=== PATIENT | male | born 1940 | race Caucasian/White ===

== ENCOUNTER 2017-01-29 14:15 | Inpatient (IN) | payer MEDICARE ==
[~2017-01-29] VITALS: Ht 157.5 cm; Wt 75.7 kg
[~2017-01-29 14:15] MED LIST: ACET-171 PO; AMLO2.5T PO; ASPI325T32 PO; HYDR-656 PO; MELO-253 PO; MORP-32 PO; NIAC500T21 PO; ONDA4TAB9 PO; OXYC1TAB24 PO; TAMS0.4C98 PO
[2017-01-29 14:30] VITALS: BP 179/77; PULSE 97; RESP 18; O2SAT 96
[2017-01-29] MEDS ORDERED: Ondansetron 2 mg/mL 2 mL Inj IVPUSH ONE (16:35)
[2017-01-29] MEDS ORDERED: HYDROmorphone 0.5 mg/0.5 mL iSecure Syringe IVPUSH PRN (16:35)
--- NOTE | 2017-01-29 16:44 | ED.REPORT ---
HPI-Extremity Problem Lower Date of Service Jan 29, 2017 ED Provider: Octavio Presley PA-C Sebastian is a 76-year-old male with history of extensive eczema, DM 2, NV, CVA, COPD who presents to emergency department with a chief complaint of left lower leg pain. Patient reports worsening pain, redness and swelling in his left lower extremity last month. States that today he noticed it was weeping a lot. Complains of chills and has difficulty moving his toes. Patient reports some left-sided paralysis at baseline and walks with a cane. Denies chest pain, palpitations, shortness of breath, wheezing, abdominal pain, vomiting. Nursing Notes Stated Complaint: LEG PROBLEM Chief Complaint: Extremity Trauma Nursing Notes Reviewed: Yes Allergies: Coded Allergies: lidocaine (Verified Allergy, Unknown, 01/29/17) Scheduled Acetaminophen (Acetaminophen) 500 Mg Tablet 1,500 MG PO HS Amlodipine (Amlodipine) 2.5 Mg Tablet 2.5 MG PO HS Aspirin (Aspirin) 81 Mg Tablet 81 MG PO HS Melatonin (Melatonin) 5 Mg Tablet 5 MG PO HS Omeprazole (Omeprazole) 20 Mg Capsule.dr 20 MG PO HS diphenhydrAMINE HCl (Benadryl) 25 Mg Capsule 25 MG PO HS Scheduled PRN ([Maria Lwood]) 1 APPLIC TOPICAL DIRECTED PRN PRN RASH Albuterol HFA (Proair HFA) 8.5 Gm Hfa.aer.ad 2 PUFFS INHALATION Q4H PRN PRN For Shortness of Breath Docusate Sodium (Docusate Sodium) 250 Mg Capsule 250 MG PO BID PRN PRN For Constipation Polyethylene Glycol 3350 (Miralax) 17 Gm Powd.pack 17 GM PO DAILY PRN PRN For Constipation Sennosides (Senna) 8.6 Mg Tablet 17.2 MG PO BID PRN PRN For Constipation General Time Seen by MD: 16:15 Chief Complaint Leg injury left Past Medical History Past Medical History Notes: PCP: ME Past Medical History Coronary artery disease with history of myocardial infarction s/p stent in 1998. Dyslipidemia. Diet-controlled diabetes mellitus type 2. History of Prostate cancer, monitored by Dr. Joyner. Severe pustular psoriasis. COPD. History of right hemisphere CVA with dysphagia, and right hemiparesis. Congestive heart failure, chronic systolic and diastolic dysfunction. Echocardiogram in 2009 showed an LVEF of 40-45%. Hypertension. History of peptic ulcer disease s/p pre-pyloric gastric perforation with surgical repair. Severe degenerative cervical arthritis. History of dysphagia and aspiration pneumonia. CKD stage 3. Eczema Reports: Asthma, Congestive heart failure, Coronary artery disease, GERD Past Surgical History Incarcerated Hernia Repair -2015 Grehard Miranda EGD 08/2015 by Gerhard Miranda - Submucosal greater curvature duodenal mass. Inguinal Hernia Stent placement 1998 Cataracts Family History non-contributory Smoking History Former Smoker Social History Alcohol Use: Denies alcohol use Other Social History: Good social support, , Local resident Ambulatory Status Independent Review of Systems Review of Systems Note: Negative unless stated otherwise in history of present illness Physical Exam General: Well appearing, well developed, well nourished, no acute distress. Left leg: Extensive redness, tenderness, induration on the medial aspect of the lower leg. DP pulse 2+. Moderate swelling when compared to right leg. Head: Atraumatic, normocephalic. Eyes: No scleral icterus or injection. No discharge. Vision grossly intact. ENT: Voice clear, hearing grossly intact. Respiratory: Regular rate and rhythm. Breath sounds present, clear to auscultation and equal bilaterally. No respiratory distress. No increased work of breathing, speaks in complete sentences. Cardiovascular: Regular rate and rhythm, without murmur, gallop or rub. No pedal edema. Gastrointestinal: Abdomen flat and non-tender without guarding or rebound. Bowel sounds normoactive. Skin: Warm and dry. Neurological: Grossly nonfocal. Psychological: Alert and oriented. Speech appropriate, linear and logical. Behavior appropriate. Initial Vital Signs Vital Signs (First) Date Time Temp Pulse Resp B/P Pulse Ox O2 Delivery O2 Flow Rate FiO2 01/29/17 14:30 37.1 97 18 179/77 96 Room Air Elevated blood pressure Interpretation & Diagnostics Lab Results Interpretation Result Diagram: 01/29/17 1659 01/29/17 1659 Test 01/29/17 16:59 White Blood Count 8.9th/mm3 (3.8-10.1) Red Blood Count 5.24mil/mm3 (4.40-5.80) Hemoglobin 10.6g/dL (13.8-17.2) Hematocrit 38.0% (41.0-50.0) Mean Corpuscular Volume 72.5fL (81-100) Mean Corpuscular Hemoglobin 20.2pg (27.0-35.0) Mean Corpuscular Hemoglobin Concent 27.9% (32.0-37.0) Red Cell Distribution Width 17.6% (12.3-15.4) Platelet Count 261bil/L (150-400) Neutrophils (%) (Auto) 72.9% (40-74) Lymphocytes (%) (Auto) 11.9% (14-46) Monocytes (%) (Auto) 7.2% (4-12) Eosinophils (%) (Auto) 7.4% (0-5) Basophils (%) (Auto) 0.4% (0-3) Prothrombin Time 10.2sec (8.1-12.5) Prothromb Time International Ratio 0.95ratio Sodium Level 142mEq/L (134-144) Potassium Level 4.2mEq/L (3.5-5.2) Chloride Level 104mEq/L (97-108) Carbon Dioxide Level 25mmol/L (18-29) Blood Urea Nitrogen 22mg/dL (8-27) Creatinine 1.28mg/dL (0.76-1.27) Estimat Glomerular Filtration Rate 58mL/min (>59) Glucose Level 106mg/dL (60-99) Lactic Acid Level 1.1mmol/L (0.4-2.0) Calcium Level 8.9mg/dL (8.5-10.1) Magnesium Level 1.6mg/dL (1.6-2.6) Total Bilirubin 0.3mg/dL (0.0-1.2) Aspartate Amino Transf (AST/SGOT) 13U/L (0-50) Alanine Aminotransferase (ALT/SGPT) 7U/L (0-44) Alkaline Phosphatase 90U/L (25-160) Troponin T < 0.010ug/L (0.0-0.011) Total Protein 7.2g/dL (6.4-8.4) Albumin 4.0g/dL (3.4-5.0) Lipase 38U/L (13-60) US Soft Tissue/Musculoskeletal PROCEDURE: US VEINOUS LEG DUPLEX UNILATERAL, LEFT IMPRESSION: No evidence of deep vein thrombosis involving the left lower extremity. Exam Performed by: Radiologist Re-Eval/Medical Decision Med Decision/Clinical Course 76-year-old male with a history of eczema and multiple comorbidities presents emergency department with a one-month history of redness, swelling and pain in his left leg. Physical examination reveals redness swelling, induration and tenderness in the left lower extremity as well as extensive eczema. Otherwise benign, normal vitals. Ultrasound is negative for DVT. CBC is negative for leukocytosis. I discussed the case with Dr. Yen, who met with and examined the patient. We agree the patient would benefit from admission. IV antibiotics (vancomycin and Zosyn) are initiated and admission is requested. Hospitalist accepts admission and patient is transferred to floor in stable condition. Consultation : Referral / Consult Name: Jenny Everett DO Note: Discussed case with Dr. Lloyd, hospitalist resident, excepts admission. Discharge & Departure Impression: Primary Impression: Cellulitis Site of cellulitis: extremity Site of cellulitis of extremity: lower extremity Laterality: left Qualified Code: L03.116 - Cellulitis of left lower limb Disposition: ADMITTED TO HOSPITAL Referrals: [facility] (PCP) EDSupervising Provider for APC: Romain Yen MD Attending Statement This is a patient initially seen by the mid-level provider, but I personally interviewed and examined the patient. This gentleman with diabetes, CHF, and mulitple co-morbidities who presents with increasing redness, swelling and pain weeping in the left lower extremity. He has intact pulses, duplex is negative for DVT, clinical exam is concerning for cellulitis. The patient is reporting significant chills and sweats-but does not clinically appear toxic. He is afebrile apartment, does not have leukocytosis. The plan is admission for IV antibiotics and supportive therapy. Octavio Presley PA-C Jan 29, 2017 16:44 Romain Yen MD Jan 29, 2017 17:46
[2017-01-29 17:10] LABS: BASOPHILS % (AUTO) 0.4 % (0-3); EOSINOPHILS % (AUTO) 7.4 % (0-5); MONOCYTES % (AUTO) 7.2 % (4-12); Mean Corpuscular Hemoglobin 20.2 pg (27.0-35.0); Mean Corpuscular Volume 72.5 fL (81-100); NEUTROPHILS % (AUTO) 72.9 % (40-74); Platelet Count 261 bil/L (150-400)
[2017-01-29 17:18] LABS: INR 0.95 ratio
[2017-01-29 17:31] LABS: TROPONIN T < 0.010 ug/L (0.0-0.011)
[2017-01-29 17:36] LABS: Lipase 38 U/L (13-60); Magnesium 1.6 mg/dL (1.6-2.6)
--- NOTE | 2017-01-29 17:36 | DRSVH ---
PROCEDURE: US VEINOUS LEG DUPLEX UNILATERAL, LEFT INDICATIONS: Leg pain. Shortness of breath. TECHNIQUE: Real-time imaging, as well as color and pulse Doppler interrogation, were performed of the lower extr emity deep veins from the inguinal ligament to the popliteal fossa. COMPARISON: None. FINDINGS: The deep veins are normally compressible, and free of intraluminal thrombus. Color and pu lse Doppler demonstrate normal phasic intraluminal flow. There is normal augmentation response to di stal compression maneuver. IMPRESSION: No evidence of deep vein thrombosis involving the left lower extremity. Dictated by: Shannan Carlson MD, PhD on 01/29/2017 at 16:33 Approved by: Shannan Carlson MD, PhD on 01/29/2017 at 16:34
[2017-01-29] MEDS ORDERED: Vancomycin Dose per Pharmacist XX ONE (17:50)
[2017-01-29] MEDS ORDERED: Piperacillin-Tazo 3.375 Gm Inj 3.375 GM in Dextrose 5% Minibag Plus 50 ML IV ONE (17:50)
[2017-01-29] MEDS ORDERED: Vancomycin Inj 1,500 MG in 0.9% Sodium Chloride 500 ML IV ONE (17:55)
[2017-01-29 19:00] VITALS: BP 164/72; PULSE 97; RESP 18; O2SAT 96
[2017-01-29] MEDS ORDERED: ASPI-973 PO (19:22)
[2017-01-29] MEDS ORDERED: POLY17PO6 PO (19:22)
[2017-01-29] MEDS ORDERED: DOCU250C2 PO (19:22)
[2017-01-29] MEDS ORDERED: SENN-133 PO (19:22)
[2017-01-29] MEDS ORDERED: ALBU8.5H2 INHALATION (19:22)
[2017-01-29] MEDS ORDERED: MELA5TAB14 PO (19:22)
[2017-01-29] MEDS ORDERED: DIPH25CA6 PO (19:22)
[2017-01-29] MEDS ORDERED: OMEP20CA11 PO (19:22)
[2017-01-29] MEDS ORDERED: Ondansetron 2 mg/mL 2 mL Inj IVPUSH PRN ×2 (19:50→20:00)
[2017-01-29] MEDS ORDERED: Alum-Mag Hydrox-Simeth 30 mL Suspension PO PRN ×2 (19:50→20:00)
[2017-01-29] MEDS ORDERED: Polyethylene Glycol (PEG) 17 Gm Powder PO PRN (20:00)
[2017-01-29 20:07] VITALS: BP 152/64; PULSE 88; RESP 18; O2SAT 96
[2017-01-29] MEDS ORDERED: diphenhydrAMINE 50 mg Capsule PO PRN (20:10)
[2017-01-29] MEDS ORDERED: [UNRECOGNIZED DRUG - OTHER] TOPICAL (20:10)
[2017-01-29 20:23] VITALS: BP 160/85; PULSE 117; RESP 18; O2SAT 92
[2017-01-29 20:25] VITALS: PULSE 112
--- NOTE | 2017-01-29 20:34 | PCM.HPMED ---
Subjective Date of Service Jan 29, 2017 Primary Provider: Admitting Physician: Jenny Everett DO [facility] Attending Physician: Jenny Everett DO Chief Complaint: Lower Leg Redness and Swelling History of Present Illness: Patient is a 76 y/o male with past medical history of DMT2, OK with stent, ischemic CVA with left residual, COPD, and eczema presents with lower extremity redness and swelling that began one month ago in his LLE and had spread to his RLE in the last week. Patient states that his eczema has been worse the past couple months, and he has had severe itchiness to his lower extremities and constantly scratches his legs. He began noticing the redness and swelling on the anterior aspect of his L ankle. This redness began to spread to the posterior ankle as well as up his leg. Along with the swelling, the patient states that his left leg has been draining fluid through the skin. His right leg has also been having extreme itchiness with redness and swelling starting this week, but denies any drainage. Patient notes point pain on the lateral ankle. Patient experiences claudication symptoms on days where he is more active and at night. Patient ambulates normally with a cane due to his left residual weakness. Associated sxs include, pain with active and passive flexion of his left foot, and a burning sensation along the anterior aspect of his Left ankle. Patient has been having chills the past two days. Denies any fevers, CP, increased SOB from baseline, ABD pain, N/V/D, dysuria, or urinary frequency. In the ED, patient was afebrile with RR, BP 179/77, O2 96% RA. Patient was started on Vancomycin and Zosyn due to the cellulitic appearance and chills. Review of Systems: Negative unless otherwise noted above Allergies Coded Allergies: lidocaine (Verified Allergy, Unknown, 01/29/17) Home Medications Acetaminophen (Acetaminophen) 500 Mg Tablet 1,500 MG PO HS Amlodipine (Amlodipine) 2.5 Mg Tablet 2.5 MG PO HS Aspirin (Aspirin) 81 Mg Tablet 81 MG PO HS Melatonin (Melatonin) 5 Mg Tablet 5 MG PO HS Omeprazole (Omeprazole) 20 Mg Capsule.dr 20 MG PO HS diphenhydrAMINE HCl (Benadryl) 25 Mg Capsule 25 MG PO HS Scheduled PRN Albuterol HFA (Proair HFA) 8.5 Gm Hfa.aer.ad 2 PUFFS INHALATION Q4H PRN PRN For Shortness of Breath Docusate Sodium (Docusate Sodium) 250 Mg Capsule 250 MG PO BID PRN PRN For Constipation Polyethylene Glycol 3350 (Miralax) 17 Gm Powd.pack 17 GM PO DAILY PRN PRN For Constipation Sennosides (Senna) 8.6 Mg Tablet 17.2 MG PO BID PRN PRN For Constipation PMH Coronary artery disease with history of myocardial infarction s/p stent in 1998. Dyslipidemia. Diet-controlled diabetes mellitus type 2. Prostate cancer, monitored by Dr. Joyner. Severe pustular psoriasis. COPD. Right hemisphere ischemic CVA with dysphagia, and left hemiparesis. Congestive heart failure, chronic systolic and diastolic dysfunction. 2009 LVEF 40-45% Hypertension. peptic ulcer disease s/p pre-pyloric gastric perforation with surgical repair. Severe degenerative cervical arthritis. dysphagia and aspiration pneumonia. CKD stage 3. Eczema Surgical History Incarcerated Hernia Repair Gerhard Miranda EGD 08/2015 by Gerhard Miranda - Submucosal greater curvature duodenal mass. Inguinal Hernia Stent placement 1998 Cataracts Family History Kidney Cancer in Brother Social History Hx Alcohol Use: No Hx Substance Use: No Hx Tobacco Use: No Smoking Status: Former Smoker Living Arrangement: with Family Exam Vital Signs Vital Sign - Last Date Time Temp Pulse Resp B/P Pulse Ox O2 Delivery O2 Flow Rate FiO2 01/29/17 20:07 37.0 88 18 152/64 96 Room Air Exam Constitutional: Awake, alert and oriented x3, no acute distress Head: normocephalic and atraumatic Eyes: Pupils equal round and reactive to light. pink conjunctiva Mouth: Poor dentition, no posterior oropharynx erythema Heart: regular rate and rhythm. No murmurs, rubs, or gallops. Bilateral pallor to distal feet and >2 capillary refill to distal digits on left foot. Distal feet are cool to the touch. Lungs: clear to auscultation, no wheeze, rales, or rhonchi ABD: Protuberant, diffuse mild tenderness, bowel sounds present throughout Musculoskeletal: Baseline LUE tremor, but FROM in bilateral UE. 5/5 strength in bilateral hand tack cutter; FROM in bilateral lower extremities Skin: Diffuse excoriatic lesions on bilateral UE including the posterior cubital areas; Blanching erythema on left lower extremity from midfoot to midcalf that is patchy and nonconfluent in some areas. Diffuse punctate excoriations on bilateral lower extremities from ankles up towards thighs. Lateral point tenderness to lateral malleolus on LLE. Pain with active flexion of Left foot. Neuro: CN II-XII intact. no focal deficits. Slight weakness to left UE with baseline tremor. Psych: appropriate mood and affect. Lab and Diagnostics Labs Item Value Date Time Red Blood Count 5.24 mil/mm3 01/29/171658 Hematocrit 38.0 % L 01/29/171658 Mean Corpuscular Volume 72.5 fL L 01/29/171658 Mean Corpuscular Hemoglobin 20.2 pg L 01/29/171658 Mean Corpuscular Hemoglobin Concent 27.9 % L 01/29/171658 Red Cell Distribution Width 17.6 % H 01/29/171658 Neutrophils (%) (Auto) 72.9 % 01/29/171658 Lymphocytes (%) (Auto) 11.9 % L 01/29/171658 Monocytes (%) (Auto) 7.2 % 01/29/171658 Eosinophils (%) (Auto) 7.4 % H 01/29/171658 Basophils (%) (Auto) 0.4 % 01/29/171658 Estimat Glomerular Filtration Rate 58 mL/min 01/29/171658 Lactic Acid Level 1.1 mmol/L 01/29/171658 Calcium Level 8.9 mg/dL 01/29/171658 Magnesium Level 1.6 mg/dL 01/29/171658 Total Bilirubin 0.3 mg/dL 01/29/171658 Aspartate Amino Transf (AST/SGOT) 13 U/L 01/29/171658 Alanine Aminotransferase (ALT/SGPT) 7 U/L 01/29/171658 Alkaline Phosphatase 90 U/L 01/29/171658 Troponin T < 0.010 ug/L 01/29/171658 Total Protein 7.2 g/dL 01/29/171658 Albumin 4.0 g/dL 01/29/171658 Lipase 38 U/L 01/29/171658 Prothrombin Time 10.2 sec 01/29/171658 Prothromb Time International Ratio 0.95 ratio 01/29/17 165 Result Diagram: 01/29/17 16501/29/17 165 X-Rays, CTs and MRIs PROCEDURE: US VEINOUS LEG DUPLEX UNILATERAL, LEFT IMPRESSION: No evidence of deep vein thrombosis involving the left lower extremity. Dictated by: Shannan Carlson MD, PhD on 01/29/2017 at 16:33 12-lead ECG Sinus rhythm; RBBB Assessment & Plan Patient is a 76 y/o male with past medical history of DMT2, OK with stent, ischemic CVA with left residual, COPD, and eczema presents with lower extremity redness and swelling that began one month ago in his LLE and had spread to his RLE in the last week - Acute Lower Extremity Erythema and Swelling, Present on Admission, Active, Stable (Infectious vs. Diminished Arterial Supply) - Patient has history of eczema with pruritic rash on bilateral LE that is actively weeping. DVT studies negative. Cellulitis appearance and active chills suggestive of infectious, possibly osteomyelitis. Distal Pallor and cool temperature suggestive of arterial insufficiency - U/S artery study of LLE in AM - Order, ESR, CRP, and Blood Cultures x2 - Plain XR of LLE ankle, will follow up with MRI if labs and radiology suggests osteomyelitis - Patient receiving Vancomycin and Zosyn - Benadryl 50mg HS for pruritus - Chronic Hypertension, Present on Admission, Active - Patient takes Amlodipine 2.5mg PO HS, continue - Add Labetalol PO PRN if BP remains elevated - Chronic GERD with PUD, Stable - Continue Omeprazole home dose - History of COPD, Stable - Continue home dose of Albuterol HFA - History of DMT2, diet controlled, Stable - Place pt on insulin ssi - History of CHF with reduced EF (40-45%), Stable - Patient not in any sort of CHF exacerbation - Tolerating PO intake, will hold off on IVF unless needed. - History of CKD stage III, Stable - Cr baseline 1.1, 1.25 on admission - Monitor Patient is admitted under inpatient status expected length of stay greater than 2 midnights due to severity of presenting symptoms, risk of adverse events, and complexity of treatment plan. Patient is Full Code Pain Evaluation: Adequate Pain Control GI Prophylaxis: H2 damaris VTE Prophylaxis: Other (on heparin drip) Resuscitation Status: CPR: Attempt Resuscitation Pain Evaluation: Adequate Pain Control GI Prophylaxis: Proton Pump Inhibitor VTE Prophylaxis Indicated: Meets Criteria for Anticoag Therapy VTE Prophylaxis: Sub-Q Heparin (Unfractionated) Resuscitation Status: CPR: Attempt Resuscitation Attending Statement The patient was seen and examined together with house staff on 01/29/2017 and I agree with the history, exam and plan as outlined in the note above. Dwight Lloyd DO Jan 29, 2017 20:34 Jenny Everett DO Jan 29, 2017 23:32
[2017-01-29] MEDS ORDERED: MORPHINE 2 MG/ML PO ONE (21:45)
[2017-01-29] MEDS: diphenhydrAMINE 25 mg Capsule PO PRN (21:50)
[2017-01-29] MEDS: Acetaminophen 32.5 mg/mL 20 mL Liquid PO SCH (21:52)
[2017-01-29] MEDS ORDERED: Morphine 2 mg/mL 5 mL Oral Solution PO ONE (22:00)
[2017-01-30] VITALS: BP 145/74; PULSE 106; RESP 18; O2SAT 93
[2017-01-30] MEDS: Heparin 5,000 Unit/mL Inj SUBQ SCH ×3 (01:31→18:15)
--- NOTE | 2017-01-30 02:27 | NUR ---
Admit Pt arrived on the floor with left lower extremity swelling/redness edema and is weeping fluids. Telemetry monitoring noted SR-ST with activity. Care plan explained to the patient. Patient verbalizes understanding. Intentional hourly rounding in effect.
[2017-01-30 04:47] VITALS: BP 127/64; PULSE 83; RESP 18; O2SAT 96
[2017-01-30 06:19] LABS: BASOPHILS % (AUTO) 0.4 % (0-3); EOSINOPHILS % (AUTO) 8.3 % (0-5); MONOCYTES % (AUTO) 9.6 % (4-12); Mean Corpuscular Hemoglobin 20.4 pg (27.0-35.0); Mean Corpuscular Volume 73.3 fL (81-100); NEUTROPHILS % (AUTO) 64.7 % (40-74); Platelet Count 219 bil/L (150-400)
[2017-01-30] MEDS ORDERED: Albuterol 2.5 mg/3 mL Inhalation Solution NEB PRN (07:00)
[2017-01-30 09:19] VITALS: BP 139/70; PULSE 91; RESP 18; O2SAT 93
--- NOTE | 2017-01-30 09:20 | NUR ---
Social Work-initial assessment: Data:See initial assessment. Pt is a 76 y/o male who was admitted on 01/29/17 for cellulitis per H&P. Pt's insurance is [facility] [employer] and PCP is [facility]. EMR Reviewed. AAYUSH met with pt at beside, SW role explained. Pt is alert and oriented x3. Pt resides at home with his in [facility] where he remains independent with ADLS. Pt drives and uses a cane at baseline. Pt has no HH, but has SNF history in [place] and has been to [facility] inpt rehab. Pt has no continuous churn buttermaker care insurance or VA benefits. SW discussed DPOA/ advanced directive, pt confirms he has completed this, SW encouraged a copy to be brought in. No concerns noted around pt's capacity for self care from RN or MD. Pt confirms his granddaughter will provide transport home. SW provided pt with discharge planning checklist and encouraged him to call with any questions, phone number provided on white board in room. No anticipated discharge needs. SW will continue to follow if needs arise. Assessment:Pt who is independent at baseline. Plan:Pt to discharge home when medically stable via POV. No anticipated discharge needs. SW will continue to follow if needs arise. ANNY Meraz Addendum: 01/30/17 at 0925 by SINGH WOODS SS Amended: Links added.
[2017-01-30] MEDS: Acetaminophen 32.5 mg/mL 20 mL Liquid PO PRN ×3 (09:27→21:30)
[2017-01-30] MEDS: 0.9% Sodium Chloride 1,000 ML IV SCH (09:31)
--- NOTE | 2017-01-30 09:53 | DRSVH ---
PROCEDURE: US DUPLEX DOPPLER UNILATERAL LEG ARTERIES, LEFT INDICATIONS: Swelling, distal pallor and cool temperature in LL TECHNIQUE: Color and pulse Doppler interrogation was performed of the left lower extremity arterial system, with image documentation. COMPARISON: [facility], US, US VENOUS LEG DPLX UNI LT, 01/29/2017, 16:56. FINDINGS: Vascular Ultrasound Procedure Report Findings(Artery of Lower Extremity)(Left) Common Femoral Artery(Distal) Velocity: 141 cm/s Profunda Femoris Artery(Proximal) Velocity: 169.30 cm/s Superficial Femoral Artery(Proximal) Velocity: 146.20 cm/s Superficial Femoral Artery(Mid-longitudinal) Velocity: 124.10 cm/s Superficial Femoral Artery(Distal) Velocity: 171.40 cm/s Popliteal Artery(Mid-longitudinal) Velocity: 199.80 cm/s Posterior Tibial Artery(Distal) Velocity: 123 cm/s Dorsalis Pedis Artery(Distal) Velocity: 147.10 cm/s Greyscale findings: Atherosclerotic changes are seen. Monophasic waveforms are seen throughout. IMPRESSION: Monophasic waveforms are seen throughout, without a focal arterial stenosis identified. Dictated by: Reynaldo Stanley M.D. on 01/30/2017 at 9:49 Approved by: Reynaldo Stanley M.D. on 01/30/2017 at 9:51
--- NOTE | 2017-01-30 10:21 | DRSVH ---
PROCEDURE: X-RAY LEFT ANKLE, TWO VIEWS ([id number]) INDICATIONS: Possible osteomyelitis TECHNIQUE: 2 views of the ankle were acquired. COMPARISON: None. FINDINGS: Bones: Minimal bone irregularity can be seen involving the inferior aspect of the medial malleolus. No fractures or dislocations. Ankle mortise is normally aligned. Age-appropriate bony degenerative changes are seen. Soft tissues: Soft tissue swelling is seen laterally. Calcification is noted of the distal arteries. This degree of calcification is typically seen in patients with a long-standing history of diabetes. Please correlate with a history of such. IMPRESSION: Minimal bony irregularity can be seen involving the inferior medial malleolus. In this p atient with a given history, this may be related to osteomyelitis at this site. Please correlate wit h physical examination findings. If it would be helpful for clinical management decision making, please consider a dedicated ankle MRI (without and with IV contrast) for further evaluation (assuming that there is no contraindication). Dictated by: Reynaldo Stanley M.D. on 01/30/2017 at 10:17 Approved by: Reynaldo Stanley M.D. on 01/30/2017 at 10:19
[2017-01-30] MEDS ORDERED: cefTRIAXone Inj 2,000 MG in Dextrose 5% Minibag Plus 50 ML IV SCH (11:55)
[2017-01-30] MEDS: TerBINafine 1% 15 Gm Cream TOPICAL SCH ×2 (11:57→20:30)
--- NOTE | 2017-01-30 12:29 | PCM.PNMED ---
Subjective Date of Service Jan 30, 2017 Subjective Patient is seen and examined. He states that he also has a rash and scratching quite a bit on his knees, abdomen, and back. He denies history of psoriasis, he is does not know if he has shingles. He does endorse occasional painful sensation and burning and he scratches. He was not treated for cellulitis in the past. He has a [id number] cream that he has been using that is not a steroid. No other concerns Exam Vital Signs Vital Sign - Last Date Time Temp Pulse Resp B/P Pulse Ox O2 Delivery O2 Flow Rate FiO2 01/30/17 04:47 36.5 83 18 127/64 96 Room Air Intake and Output 01/29/17 01/29/17 01/30/17 Cumulative From/Thru 14:59 22:59 06:59 01/29/17 14:30 - 01/30/17 04:50 Intake Total 550 ml 150 ml 700 ml Output Total 400 ml 400 ml Balance 550 ml -250 ml 300 ml Intake Oral 150 ml 150 ml IV Total 550 ml 550 ml Output Urine Total 400 ml 400 ml # Bowel Movements 0 0 Exam Gen.: No acute distress, moving about in the room HEENT: Missing front teeth Heart: Regular rate and rhythm no S3-S4 murmurs Lungs clear to auscultation no increased work of breathing Abdomen soft nontender normal bowel sounds mild rash in the lower left quadrant Skin: Small areas of excoriations from scratching on lower left abdomen and upper back extensive excoriations on both legs. Left leg is more swollen than the right leg. Motor erythema erythematous with weeping ulcers. He has a area of the anterior tibia that has a central clearing. Neurological alert and oriented by 3, mood is neutral IVs and Medications Medications Reviewed: Medications were reviewed in detail Lab and Diagnostics Result Diagram: 01/30/17 0540 01/30/17 0540 X-Rays, CTs and MRIs PROCEDURE: US VEINOUS LEG DUPLEX UNILATERAL, LEFT IMPRESSION: No evidence of deep vein thrombosis involving the left lower extremity. Dictated by: Shannan Carlson MD, PhD on 01/29/2017 at 16:33 12-lead ECG Sinus rhythm; RBBB Assessment & Plan Patient is a 76 y/o male with past medical history of DMT2, FL with stent, ischemic CVA with left residual, COPD, and eczema presents with lower extremity redness and swelling that began one month ago in his LLE and had spread to his RLE in the last week - Acute Lower Extremity Erythema and Swelling, Present on Admission, Active, Stable (Infectious vs. Diminished Arterial Supply) - Patient has history of eczema with pruritic rash on bilateral LE that is actively weeping. DVT studies negative. Cellulitis appearance and active chills suggestive of infectious, possibly osteomyelitis. Distal Pallor and cool temperature suggestive of arterial insufficiency - U/S artery study of LLE in AM was neg - Order, ESR 6, CRP 2.7, and Blood Cultures x2 - Plain XR of LLE ankle: "Minimal bony irregularity can be seen involving the inferior medial malleolus. In this patient with a given history, this may be related to osteomyelitis at this site. Please correlate with physical examination findings.", Ordered MRI of LLE ankle - Discontinued Vancomycin and Zosyn 01/30, the patient has a cellulitic rash on the left lower extremity appears to be more indicative of dermatitis - Benadryl 50mg HS for pruritus -- Community dwelling person without prior treatment for cellulitis, ceftriaxone 2 g daily -- MRSA nasal swab -- Wound care consult -- Elevate legs -- Terbinafine Cream for possible fungal infection Elevated creatinine acute 01/30 -- Likely secondary to antibiotics Vanco and Zosyn -- Switched antibiotics -- Gentle IV fluid hydration 50 mL/h -- AM BMP Chronic Hypertension, Present on Admission, Active - Patient takes Amlodipine 2.5mg PO HS, continue -- Consider alternate a medication of amlodipine increased swelling in legs - Add Labetalol PO PRN if BP remains elevated Chronic GERD with PUD, Stable - Continue Omeprazole home dose History of COPD, Stable - Continue home dose of Albuterol HFA History of DMT2, diet controlled, Stable - Place pt on insulin ssi Chronic Systolic CHF with reduced EF (40-45%), Stable - Patient not in any sort of CHF exacerbation - Tolerating PO intake, will hold off on IVF unless needed. CKD stage III, Stable - Cr baseline 1.1, 1.25 on admission - Monitor Patient is admitted under inpatient status expected length of stay greater than 2 midnights due to severity of presenting symptoms, risk of adverse events, and complexity of treatment plan. Patient is Full Code Pain Evaluation: Adequate Pain Control GI Prophylaxis: H2 damaris VTE Prophylaxis: Other (on heparin drip) Resuscitation Status: CPR: Attempt Resuscitation Pain Evaluation: Adequate Pain Control GI Prophylaxis: Proton Pump Inhibitor VTE Prophylaxis: Sub-Q Heparin (Unfractionated) Resuscitation Status: CPR: Attempt Resuscitation Time spent 25 minutes Bettie Pearl DO Jan 30, 2017 07:22
--- NOTE | 2017-01-30 14:30 | NUR ---
Inpatient Wound Nurse Patient seen for BLE wound care. His R leg is extensively scarred with active (likely) eczema with multiple areas of ooze and purulent pustules that have crusted. Splotchy erythema is noted in random pattern. Patient states that R leg is painful but manageable most of the time. L leg is boggy, erythemic, and tender to touch. It is weeping in places and has dried onto chucks pad under his leg. Patient stated that he normally tries to manage edema with ESTEBAN wraps but drainage has increased too greatly for ACEs. No DVT found in diagnostic reports. Dr. Pearl is agreeable to trial of Unna wrap. Both legs were cleansed and blotted dry, then wrapped with Unna, Kerlix, and Coban. The zinc and calmoseptine may improve the weepy areas and compression may improve edema. Patient stated that the light compression was tolerable and cooling zinc felt better on his skin. He was instructed to report pain or irritation and that wraps could be removed quickly if he could not tolerate them. Although Unna wraps would typically be on for 3 to 5 days, CWON expects MDs to want to see BLE daily. Wraps may be removed by MD, patient's nurse, or CWON, and then CWON alerted that MD assessment is completed and wraps will be applied. CWON RN will check on patient daily.
[2017-01-30 15:14] LABS: APPEARANCE,URINE CLEAR (CLEAR,HAZY); COLOR,URINE YELLOW (YELLOW); OCCULT BLOOD,URINE NEGATIVE (NEGATIVE); UROBILINOGEN,URINE NORMAL (NORMAL)
[2017-01-30 16:10] VITALS: BP 135/62; PULSE 79; RESP 18; O2SAT 93
--- NOTE | 2017-01-30 16:19 | NUR ---
[facility] and this [facility] is non service connected and is seen at [facility]. Updated [facility] [address]
--- NOTE | 2017-01-30 18:41 | NUR ---
Skin Care/WC Pt reporting itching on back. Pt has raised rash/ezcema like skin on back. Administered lotion on pt back. Pt reports itching to be relieved. WC applied bilat leg wraps to pt. Instructed this nurse dressings will be changed QDay and to time cream application and inspection with WC visit to reapply dressings.
--- NOTE | 2017-01-30 18:51 | NUR ---
Constipation Pt reports not having any BM for 4-5 days. Pt denies any abdominal discomfort but has some concern about not being regular. Reports to normally take Miralax everyday at home. Administered prune juice in AM with no avail. Later administered Miralax in afternoon, then senna in early evening. Pt had no BM during this shift. Notes on board to have bowel regimen part of daily plan.
[2017-01-30 19:52] VITALS: BP 144/72; PULSE 84; RESP 18; O2SAT 94
[2017-01-30] MEDS: Acetaminophen 32.5 mg/mL 20 mL Liquid PO SCH (21:00)
[2017-01-30] MEDS: diphenhydrAMINE 25 mg Capsule PO PRN (21:28)
[2017-01-31] MEDS: Heparin 5,000 Unit/mL Inj SUBQ SCH ×3 (00:41→17:22)
[2017-01-31 05:16] VITALS: BP 140/80; PULSE 78; RESP 18; O2SAT 95
[2017-01-31] MEDS: 0.9% Sodium Chloride 1,000 ML IV SCH ×2 (05:24→23:25)
--- NOTE | 2017-01-31 06:51 | NUR ---
NOC activity Pt reports of leg pain, 11/20. Administered Tylenol PRN. Pt Denies chest pain, sob, n/v or abd discomfort. Has been pleasant and cooperative with care. HS meds administered as scheduled. VSS and has been afebrile overnight.
[2017-01-31] MEDS: TerBINafine 1% 15 Gm Cream TOPICAL SCH ×2 (08:30→21:29)
[2017-01-31] MEDS: Ceftaroline Inj 400 MG in Dextrose 5% 250 ML IV SCH ×2 (09:16→21:33)
[2017-01-31 09:18] VITALS: BP 160/75; PULSE 96; RESP 18; O2SAT 96
[2017-01-31 12:23] VITALS: BP 161/78; PULSE 84; RESP 18; O2SAT 94
--- NOTE | 2017-01-31 15:03 | NUR ---
LE Pt c/o feeling like LE is wet and weeping. LE unwrapped and physician asked to assess. Per family and pt, LE looks a lot better. No edema noted. All open areas appear healed over and dry. Pt states to be satisfied with the progress thus far. MRI completed, waiting on results.
--- NOTE | 2017-01-31 15:08 | DRSVH ---
PROCEDURE: MRI ANKLE LEFT WITH AND WITHOUT CONTRAST ([id number]) INDICATIONS: concern for osteomyelitis TECHNIQUE: Noncontrast sagittal T1 spin echo and T2 fast spin echo with fat saturation, axial proton density fas t spin echo and T2 fast spin echo with fat saturation, axial T1 spin echo with fat saturation, blackburn l T1 spin echo and T2 fast spin echo with fat saturation through the ankle/hindfoot. Post-contrast a xial, coronal, and sagittal T1 spin echo with fat saturation through the ankle/hindfoot. COMPARISON: None. FINDINGS: Image quality: Excellent. Bones and joints: No suspicious osseous enhancement. No bone marrow contusions or fractures. No hi ndfoot coalitions. No osteochondral injuries of the talar dome. No pathologic joint effusions. The re is diffuse circumferential soft tissue edema about the hindfoot. There is focal fluid overlying th e lateral malleolus with questionable/mild rim enhancement image 8 series 12 measuring 1.6 x 0.3 cm c ross-sectional dimension. This raises the possibility of phlegmon/developing abscess Medial structures: The posterior tibialis, flexor digitorum longus, and flexor hallucis longus tendo ns are intact. The posterior tibial neurovascular bundle appears normal within the tarsal tunnel, wi thout extrinsic mass effect. The deep layer (anterior and posterior tibiotalar ligaments) and superf icial layer (tibionavicular, tibiospring, and tibiocalcaneal ligaments) of the deltoid ligament appea r normal. The spring ligament components (superomedial calcaneonavicular, medioplantar oblique calca neonavicular, and inferoplantar longitudinal ligaments) are intact. Lateral structures: The anterior talofibular, calcaneofibular, and posterior talofibular ligaments a ppear intact. More superiorly, the anterior and posterior tibiofibular ligaments appear normal, as i s the intermalleolar ligament. The tibiofibular syndesmosis is normal in width at 2 mm or less. The peroneus longus and brevis tendons demonstrate normal location and morphology. There is minimal adonay rounding fluid suggesting peroneal tenosynovitis. Adjacent bony peroneal tubercle and retrotrochlear prominence are normal in size. The sinus tarsi de monstrates normal fatty signal, without edema, fibrosis, or cyst formation. Visualized sinus tarsi c omponents (cervical ligament, interosseous talocalcaneal ligament, roots of the inferior extensor ret inaculum) appear normal. The calcaneonavicular and calcaneocuboid components of the bifurcate ligame nt appear intact. Anterior structures: The tibialis anterior, extensor hallucis longus, and extensor digitorum longus tendons appear intact. Posterior and plantar structures: Achilles tendon is intact. Medial and lateral bands of the planta r fascia are of normal thickness. No abductor digiti quinti muscle atrophy to suggest Duckworth neuropa thy. IMPRESSION: No definite marrow signal change or enhancement to suggest osteomyelitis. Circumferential subcutaneous edema/cellulitis. Small subcutaneous fluid collection possible rim enhancement overlying the lateral malleolus raising the possibility of phlegmon/developing abscess. Minimal peroneal tenosynovitis of unknown clinical significance. Dictated by: Milton Osuna M.D. on 01/31/2017 at 14:42 Approved by: Milton Osuna M.D. on 01/31/2017 at 15:06
--- NOTE | 2017-01-31 15:47 | NUR ---
Inpatient Wound Nurse Patient complained of wet sensation, prompting removal of L Unna wrap. MD took opportunity to assess LLE. LLE edema is greatly improved and weeping areas are now dry. Scattered areas of patchy erythema have persisted, as well as dried crusts. Patient denied pain, did explain that he experiences chilled sensations on L side of his body and now states that it wasn't wet sensation he had, but cold. Patient agreeable to rewrap, would like to continue Unna therapy as long as it is helpful. ARSLAN RN wrapped LLE with Unna, Kerlix, and Coban without challenge. Patient stated that he thinks he will be discharged tomorrow and is concerned that [place] will not authorize [facility]. [facility] and [facility]; otherwise[facility] for patient. ARSLAN will follow up with patient tomorrow.
[2017-01-31 19:36] VITALS: BP 202/105; PULSE 78; RESP 18; O2SAT 95
--- NOTE | 2017-01-31 20:35 | NUR ---
I&D wound consult Assisted MD in removing LLE dsg to examine, MD doesn't think there appears be infection re-dressed as well as possible w/current dsg
--- NOTE | 2017-01-31 20:38 | CONS ---
[address] [address] CONSULTATION REPORT PATIENT: FRANCISCO OLWE : 1940 MR#: [id number] ADMIT: 01/29/2017 JOB ID: [id number] DATE OF SERVICE: 01/31/2017 INFECTIOUS DISEASE CONSULTATION: I thank Dr. Bettie Pearl for this timely consult. REASON FOR CONSULTATION: Possible soft tissue infection bilateral lower extremities. HISTORY OF PRESENT ILLNESS: The patient is an extremely unfortunate 76-year-old gentleman who is a of both [employer] and [employer]. He served in [employer] during the . The patient has an extraordinary past medical history including diabetes, coronary artery disease, a stroke with residual left weakness, COPD, prostate cancer, and more. He is also known to have chronic edema which he says has been a problem in both lower extremities for over two decades and started about the time of his [place] in the . He also has been diagnosed in the past with pustular psoriasis. In any event, the patient tells me he was in his usual state of very compensated health until a couple of weeks ago when his bilateral lower extremity swelling, itching, and redness got much worse than normal. He noticed that especially on the left side there was actually weeping from the leg and when he would sit at his kitchen table in the morning scratching his very swollen legs, especially on the left, fluid which had a foul order would actually drain from the leg. This was also observed, but to a lesser extent, on the right side. He notes that both these legs are chronically swollen, intermittently erythematous, and always pruritic. The patient also relates that he has had chills, but he tells me he has had chills for years, and these are really not any different. He has had no significant fever, no loss of appetite, and no GI symptoms. He is chronically short of breath because of his underlying COPD and does have a chronic cough as well. ID consultation is requested at this time regarding management of this potential infection. Note that the patient was admitted now about almost 72 hours ago and has been receiving broad-spectrum antibiotics with the idea that one or both of these legs are infected. PAST MEDICAL HISTORY: 1. Organic heart disease. a. Coronary artery disease. b. Chronic lower extremity edema. c. Congestive heart failure with ejection fraction moderately reduced. 2. Chronic renal insufficiency. 3. Diet-controlled diabetes. 4. Prostate cancer. 5. Pustular psoriasis. 6. COPD. 7. Right hemispheric CVA with residual left hemiparesis. 8. Severe degenerative cervical arthritis. 9. History of recurrent pneumonia including aspiration pneumonia. 10. Eczema. 11. Pustular psoriasis. 12. Hypertension and hyperlipidemia. SOCIAL HISTORY: The patient is a nondrinker and nonsmoker. He was a very heavy fnddz-[id number]-day smoker until 1998 when he quit literally during his heart attack. He lives at home with his family. FAMILY HISTORY: Negative for TB in first- and second-degree relatives. REVIEW OF SYSTEMS: Was done. Tonight the patient tells me he is having no significant headache. He has had chronic drooping of the eyelids and just recently underwent eye surgery to correct this problem. The sutures are, in fact, still in place and supposed to be removed next week. The patient reports no intraoral pain. States his teeth are in fair repair. No sore throat, though he does sometimes have some dysphagia. He has chronic neck pain as well. He states he is chronically short of breath with a chronic dry cough but it has not worsened lately. No chest pain at this point. He does have constipation, but no nausea, vomiting, or diarrhea. He has residual weakness on his left side, though he is able to drive a car and ambulate with the use of a cane. He notes he has some reduced sensation on the left side of his body which makes it hard for him to tell about various tactile questions. He notes he has chronic edema of both legs; the left is always worse than the right, and they are often red. He sometimes has weeping. He has been told he has bad arteries and bad veins in his lower extremities bilaterally. The remainder of the review of systems is negative. PHYSICAL EXAMINATION: Reveals an afebrile gentleman temperature 36.2, pulse 78, respiratory rate 18, blood pressure 202/105 this evening. He is saturating well on room air. Despite his many problems he is walking around the room with his cane and does not look all that bad from a global perspective. The patient is awake and alert, able to give a fine history. There is no temporal wasting. No evidence of head trauma. His eyes have sutures in the lower lid from his recent surgeries. These appear uninfected. There is no conjunctivitis. His nose appears normal. Oral cavity with some missing teeth, but no apparent gingivitis or pharyngitis. Neck is reasonably supple despite his history of cervical arthritis. Breath sounds reveal dramatically decreased breath sounds bilaterally, with a few crackles scattered throughout the lung jaramillo. Cardiac tones without significant murmur. The abdomen is soft and nontender, without organomegaly or ascites. He does not have a Collins catheter at this point. No inguinal adenopathy is appreciated. The patient's upper legs are without much in the way of edema or abnormality. He does not have any knee effusions or restriction of motion of the knees. Both legs have complicated dressings present, so I was able to persuade the nurse on a compromise where we would remove only the left, which is the worst impacted leg. Upon removing the complex dressings, we found diffuse excoriated tissue but no focal evidence of significant cellulitis. The tissues are mildly erythematous but not especially warm nor tender to touch, and I can detect no drainage, and no pus certainly. His feet bilaterally are cool, but with slow capillary refill. He does not have easily palpable peripheral pulses in either foot. Neurologically, the patient is weak on the left side but does have probably 4+ strength on the left in both the arm and the leg, which is adequate for him to ambulate and manipulate objects with his left upper extremity. LABORATORY STUDIES: Include white blood count 6600, hematocrit 33. Sed rate 6 and 15, both low for his age. Creatinine 1.14. CRP 4. Streptozyme is pending. MRSA screen positive from the nares. Blood cultures negative. IMAGING: During this admission has included venous duplex studies done on the left which showed no DVT. Additionally an x-ray was done of the left ankle and shows minimal bony irregularity on the inferior medial malleolus, which led to a recommendation for an ankle MRI. The ankle MRI shows no changes to suggest osteo. There is circumferential edema. They noted a small subcutaneous fluid collection with possible ring enhancement over the lateral malleolus which raised the possibility of a phlegmon. Lower extremity ultrasound was done, also on the left lower extremity, to look for evidence of arterial insufficiency and this was surprisingly normal. No focal arterial stenosis was noted. IMPRESSION: This is a complex elderly gentleman. My initial impression reviewing the case and seeing the patient is he did not have any infection. He tells a history of 20 years really of lymphedema in the lower extremities with chronic erythema, pruritus, scratching, and occasional weeping. It sounds as if this all got worse leading to his admission a couple of days ago and since then, with excellent care from the wound management team and compressive dressings as well as diuresis, his legs are much improved. He is colonized with MRSA in the nares and of course this could be a risk factor for staphylococcal cellulitis involving one or both of his legs, but I think it is not the case. Most Infectious Disease doctors maintain that there is no such thing as bilateral cellulitis, and that seems to be what we are postulating here, as the patient notes that the redness, swelling, and pruritus on the left leg, which is always the worst of his two legs, spread to the right leg and this is not a typical pattern for cellulitis though it is remotely possible. I note that Dr. Pearl has made a fine decision in switching the patient off the nephrotoxic combination of antibiotics to ceftaroline alone. Ceftaroline alone would have great Staph, strep, and some gram-negative coverage, and would make sense in this situation if he really thought his legs are infected, but I am inclined to doubt that. RECOMMENDATIONS: 1. I would continue with the ceftaroline to complete a total of five days or so of broad-spectrum antibiotics to cover our bases in case there is some underlying component of infection, which I am inclined to doubt. 2. I will see this patient again with you tomorrow to further review his physical findings; but, as noted above, my inclination would be to treat broadly with the ceftaroline through about perhaps February 02 and then discontinue therapy unless we have a compelling reason to continue. 3. Mupirocin ointment will be ordered for the nares. 4. The patient has been appropriately placed in isolation.
--- NOTE | 2017-01-31 20:45 | PCM.PNMED ---
Subjective Date of Service Jan 31, 2017 Subjective Patient is seen and examined, his left extremity was unwrapped today, appears much improved. Swelling has also improved. Patient has no concerns Exam Vital Signs Vital Sign - Last Date Time Temp Pulse Resp B/P Pulse Ox O2 Delivery O2 Flow Rate FiO2 01/31/17 19:36 36.2 78 18 202/105 95 Room Air Intake and Output 01/30/17 01/30/17 01/31/17 Cumulative From/Thru 15:00 23:00 07:00 01/29/17 14:30 - 01/31/17 06:51 Intake Total 1120 ml 859 ml 2679 ml Output Total 250 ml 400 ml 1050 ml Balance 870 ml 459 ml 1629 ml Intake Oral 718 ml 300 ml 1168 ml IV Total 402 ml 559 ml 1511 ml Output Urine Total 250 ml 400 ml 1050 ml # Voids 1 1 # Bowel Movements 0 0 Exam Gen.: No acute distress, moving about in the room HEENT: Missing front teeth Heart: Regular rate and rhythm no S3-S4 murmurs Lungs clear to auscultation no increased work of breathing Abdomen soft nontender normal bowel sounds mild rash in the lower left quadrant Skin: Small areas of excoriations from scratching on lower left abdomen and upper back extensive excoriations on both legs. Left leg is more swollen than the right leg. Motor erythema erythematous with weeping ulcers. He has a area of the anterior tibia that has a central clearing. Neurological alert and oriented by 3, mood is neutral IVs and Medications IV Fluids Discontinued IV fluids Medications Reviewed: Medications were reviewed in detail Lab and Diagnostics Result Diagram: 01/31/17 0555 01/31/17 0555 X-Rays, CTs and MRIs PROCEDURE: US VEINOUS LEG DUPLEX UNILATERAL, LEFT IMPRESSION: No evidence of deep vein thrombosis involving the left lower extremity. Dictated by: Shannan Carlson MD, PhD on 01/29/2017 at 16:33 -- PROCEDURE: MRI ANKLE LEFT WITH AND WITHOUT CONTRAST ([id number]) INDICATIONS: concern for osteomyelitis IMPRESSION: No definite marrow signal change or enhancement to suggest osteomyelitis. Circumferential subcutaneous edema/cellulitis. Small subcutaneous fluid collection possible rim enhancement overlying the lateral malleolus raising the possibility of phlegmon/developing abscess. Minimal peroneal tenosynovitis of unknown clinical significance. Dictated by: Milton Osuna M.D. on 01/31/2017 at 14:42 Approved by: Milton Osuna M.D. on 01/31/2017 at 15:06 12-lead ECG Sinus rhythm; RBBB Assessment & Plan Patient is a 76 y/o male with past medical history of DMT2, [place] with stent, ischemic CVA with left residual, COPD, and eczema presents with lower extremity redness and swelling that began one month ago in his LLE and had spread to his RLE in the last week - Acute Lower Extremity Erythema and Swelling, Present on Admission, Active, Stable (Infectious vs. Diminished Arterial Supply) - Patient has history of eczema with pruritic rash on bilateral LE that is actively weeping. DVT studies negative. Cellulitis appearance and active chills suggestive of infectious, possibly osteomyelitis. Distal Pallor and cool temperature suggestive of arterial insufficiency - U/S artery study of LLE in AM was neg - Order, ESR 6->15, CRP 2.7-->4.1, and Blood Cultures x2 no growth to date - Plain XR of LLE ankle: "Minimal bony irregularity can be seen involving the inferior medial malleolus. In this patient with a given history, this may be related to osteomyelitis at this site. Please correlate with physical examination findings.", Ordered MRI of LLE ankle - Discontinued Vancomycin and Zosyn 01/30, the patient has a cellulitic rash on the left lower extremity appears to be more indicative of dermatitis - Benadryl 50mg HS for pruritus -- ceftriaxone 2 g daily was initially given on 01/30 -- MRSA nasal swab: Presumptive positive -- Wound care consult: There are no wrapping patient's lower extremities -- Elevate legs -- 01/31 changed antibiotics to ceftaroline 600 mg IV twice a day -- Consider linezolid by mouth and flagyl -- MRI of left ankle showed:"Small subcutaneous fluid collection possible rim enhancement overlying the lateral malleolus raising the possibility of phlegmon/ developing abscess.Minimal peroneal tenosynovitis of unknown clinical significance." -- Consult ID Fungal infection diffuse, active, POA ---- Terbinafine Cream for possible fungal infection Left ankle abscess, active -- As evidenced by MRI -- Consider by mouth Flagyl by mouth -- -- Consult ID Elevated creatinine resolved 01/31 -- Likely secondary to antibiotics Vanco and Zosyn -- Switched antibiotics Chronic Hypertension, Present on Admission, Active - Patient takes Amlodipine 2.5mg PO HS, continue Chronic GERD with PUD, Stable - Continue Omeprazole home dose History of COPD, Stable - Continue home dose of Albuterol HFA History of DMT2, diet controlled, Stable - Place pt on insulin ssi Chronic Systolic CHF with reduced EF (40-45%), Stable - Patient not in any sort of CHF exacerbation - Tolerating PO intake, will hold off on IVF unless needed. CKD stage III, Stable - Cr baseline 1.1, 1.25 on admission - Monitor Patient is admitted under inpatient status expected length of stay greater than 2 midnights due to severity of presenting symptoms, risk of adverse events, and complexity of treatment plan. Patient is Full Code Pain Evaluation: Adequate Pain Control GI Prophylaxis: H2 damaris VTE Prophylaxis: Other (on heparin drip) Resuscitation Status: CPR: Attempt Resuscitation Pain Evaluation: Adequate Pain Control GI Prophylaxis: Proton Pump Inhibitor VTE Prophylaxis: Sub-Q Heparin (Unfractionated) VTE Mechanical Devices: Venous Foot Pump Resuscitation Status: CPR: Attempt Resuscitation Time spent 25 minutes Bettie Pearl DO Jan 31, 2017 19:59
[2017-01-31] MEDS: Mupirocin 2% 22 Gm Ointment NASAL SCH (21:29)
[2017-01-31] MEDS: Acetaminophen 32.5 mg/mL 20 mL Liquid PO SCH (21:31)
[2017-02-01] MEDS: Heparin 5,000 Unit/mL Inj SUBQ SCH ×3 (01:04→16:23)
[2017-02-01 05:48] VITALS: BP 143/74; PULSE 65; RESP 18; O2SAT 96
[2017-02-01] MEDS: Mupirocin 2% 22 Gm Ointment NASAL SCH ×2 (08:10→20:54)
[2017-02-01] MEDS: TerBINafine 1% 15 Gm Cream TOPICAL SCH ×2 (08:10→20:54)
[2017-02-01] MEDS: Ceftaroline Inj 400 MG in Dextrose 5% 250 ML IV SCH ×2 (11:57→20:08)
--- NOTE | 2017-02-01 12:21 | PROG NOTE ---
[address] [address] PROGRESS NOTE PATIENT: FRANCISCO LOWE : 1940 MR#: [id number] ADMIT: 01/29/2017 JOB ID: [id number] INFECTIOUS DISEASE FOLLOWUP: DATE: 02/01/2017 REASON FOR FOLLOWUP: Bilateral lower extremity lymphedema with venous stasis changes, rule out cellulitis. INTERVAL HISTORY: The patient has felt relatively well overnight. No fevers, chills or sweats. His legs have been rewrapped once again since I unwrapped them last night. PHYSICAL EXAMINATION: Reveals an afebrile gentleman, temperature 36.2, blood pressure 143/74, pulse 65, respiratory rate 18, he is saturating well. His lungs are clear. No abdominal symptoms. No abdominal pain. His lower extremities that I examined last night when I took off the dressings were suggestive of venous stasis changes and resolving lymphedema but there was no real evidence of infection. LABORATORY DATA: Labs include a normal white count 6600, normal sed rate 15, procalcitonin normal 0.09. ASO titer came back zero. Cultures are negative. MRSA however in the nares was positive indicating colonization. IMPRESSION: I do not think this patient has significant cellulitic or infectious component to what is likely lymphedema with venous stasis changes. Because methicillin-resistant Staphylococcus aureus was isolated and there were concerns about gram-negative coverage, I think it may be reasonable to give him a very short course of ceftaroline but then stop at that time. RECOMMENDATIONS: 1. I would continue ceftaroline for about two more days and I have put a stop date in the computer. 2. Unless there is additional evidence of infection, I would stop all his antibiotics, February 02 or February 03 and consider him for discharge. 3. I would continue with the nasal mupirocin. 4. ID will go ahead and sign off at this time.
--- NOTE | 2017-02-01 13:10 | NUR ---
Inpatient Wound Nurse Patient requested rewrap of LLE. Previously applied wrap was completely removed and LLE was cleansed with soap and water washcloth, then rinsed. Multiple layers of dried, crusted skin washed away easily. Anterior ankle remains erythemic and tender to touch, appears as sunburned skin, no weeping, no moisture. Remaining erythemic areas have improved. Edema greatly improved. CWON RN wrapped LLE with Unna, Kerlix, and Coban without challenge. If patient is discharged today or tomorrow, CWON will rewrap BLE so that patient has maximum length of Unna therapy until he is seen in follow up at [place]. CWON will check with patient tomorrow.
[2017-02-01 13:15] VITALS: BP 151/72; PULSE 65; RESP 18; O2SAT 94
--- NOTE | 2017-02-01 15:40 | NUR ---
IV IV d/cd over night, new one replaced per MD request to continue with IV abx. Pt tolerated aseptic procedure well and the IV abx.
--- NOTE | 2017-02-01 17:40 | NUR ---
Social Work: Brief Note / ROBBIN EMR reviewed. SW visited patient's room to discuss assistance with medications upon discharge. Patient states that he does not receive his check until next Sunday and will be unable to afford the cost of his medications. Patient also informed SW that [facility] Patient states that he will need to be discharged earlier in the day so that he will have time [facility] SW informed patient that she would notify MD in the AM so that prescriptions can be written earlier in the day. Patient states that [facility] is closed on the weekends so if prescriptions aren't written by tomorrow, he will not be able to get them filled until Sunday at the earliest. SW will continue to follow. SW met with patient to deliver ROBBIN. ROBBIN was signed by who was at bedside. ANNY Banks
[2017-02-01] MEDS: Acetaminophen 32.5 mg/mL 20 mL Liquid PO SCH (20:11)
[2017-02-01 20:20] VITALS: BP 153/73; PULSE 82; RESP 22; O2SAT 95
--- NOTE | 2017-02-01 21:51 | PCM.PNMED ---
Subjective Date of Service Feb 01, 2017 Subjective Patient is seen examined, no new complaints. Exam Vital Signs Vital Sign - Last Date Time Temp Pulse Resp B/P Pulse Ox O2 Delivery O2 Flow Rate FiO2 02/01/17 05:48 36.2 65 18 143/74 96 Room Air Intake and Output 01/31/17 01/31/17 02/01/17 Cumulative From/Thru 15:00 23:00 07:00 01/29/17 14:30 - 02/01/17 06:11 Intake Total 558 ml 706 ml 572 ml 4515 ml Output Total 300 ml 1350 ml Balance 558 ml 406 ml 572 ml 3165 ml Intake Oral 480 ml 300 ml 1948 ml IV Total 558 ml 226 ml 272 ml 2567 ml Output Urine Total 300 ml 1350 ml # Voids 2 3 6 # Bowel Movements 1 1 Exam Gen.: No acute distress, lying down watching TV HEENT: Missing front teeth Heart: Regular rate and rhythm no S3-S4 murmurs Lungs clear to auscultation no increased work of breathing Abdomen soft nontender normal bowel sounds Extremities: Both legs are wrapped today unable to view skin changes Neurological alert and oriented by 3, mood is neutral IVs and Medications Medications Reviewed: Medications were reviewed in detail Lab and Diagnostics Result Diagram: 01/31/1755 01/31/1755 X-Rays, CTs and MRIs PROCEDURE: US VEINOUS LEG DUPLEX UNILATERAL, LEFT IMPRESSION: No evidence of deep vein thrombosis involving the left lower extremity. Dictated by: Shannan Carlson MD, PhD on 01/29/2017 at 16:33 -- PROCEDURE: MRI ANKLE LEFT WITH AND WITHOUT CONTRAST ([id number]) INDICATIONS: concern for osteomyelitis IMPRESSION: No definite marrow signal change or enhancement to suggest osteomyelitis. Circumferential subcutaneous edema/cellulitis. Small subcutaneous fluid collection possible rim enhancement overlying the lateral malleolus raising the possibility of phlegmon/developing abscess. Minimal peroneal tenosynovitis of unknown clinical significance. Dictated by: Milton Osuna M.D. on 01/31/2017 at 14:42 Approved by: Milton Osuna M.D. on 01/31/2017 at 15:06 12-lead ECG Sinus rhythm; RBBB Assessment & Plan Patient is a 76 y/o male with past medical history of DMT2, [place] with stent, ischemic CVA with left residual, COPD, and eczema presents with lower extremity redness and swelling that began one month ago in his LLE and had spread to his RLE in the last week - Acute Lower Extremity Erythema and Swelling, Present on Admission, Active, Stable (Infectious vs. Diminished Arterial Supply) - Patient has history of eczema with pruritic rash on bilateral LE that is actively weeping. DVT studies negative. Cellulitis appearance and active chills suggestive of infectious, possibly osteomyelitis. Distal Pallor and cool temperature suggestive of arterial insufficiency - U/S artery study of LLE in AM was neg - Order, ESR 6->15, CRP 2.7-->4.1, and Blood Cultures x2 no growth to date - Plain XR of LLE ankle: "Minimal bony irregularity can be seen involving the inferior medial malleolus. In this patient with a given history, this may be related to osteomyelitis at this site. Please correlate with physical examination findings.", Ordered MRI of LLE ankle - Discontinued Vancomycin and Zosyn 01/30, the patient has a cellulitic rash on the left lower extremity appears to be more indicative of dermatitis - Benadryl 50mg HS for pruritus -- ceftriaxone 2 g daily was initially given on 01/30 -- MRSA nasal swab: Presumptive positive -- Wound care consult: There are no wrapping patient's lower extremities -- Elevate legs -- 01/31 changed antibiotics to ceftaroline 600 mg IV twice a day -- Consider linezolid by mouth and flagyl -- MRI of left ankle showed:"Small subcutaneous fluid collection possible rim enhancement overlying the lateral malleolus raising the possibility of phlegmon/ developing abscess.Minimal peroneal tenosynovitis of unknown clinical significance." -- Consult ID:"1. I would continue ceftaroline for about two more days and I have put a stop date in the computer. Unless there is additional evidence of infection, I would stop all his antibiotics, February 02 or February 03 and consider him for discharge. I would continue with the nasal mupirocin." Fungal infection diffuse, active, POA ---- Terbinafine Cream for possible fungal infection Left ankle abscess, active -- As evidenced by MRI -- Consider by mouth Flagyl by mouth -- -- Consult ID: Recommendations as above Elevated creatinine resolved 01/31 -- Likely secondary to antibiotics Vanco and Zosyn -- Switched antibiotics Chronic Hypertension, Present on Admission, Active - Patient takes Amlodipine 2.5mg PO HS, continue Chronic GERD with PUD, Stable - Continue Omeprazole home dose History of COPD, Stable - Continue home dose of Albuterol HFA History of DMT2, diet controlled, Stable - Place pt on insulin ssi Chronic Systolic CHF with reduced EF (40-45%), Stable - Patient not in any sort of CHF exacerbation - Tolerating PO intake, will hold off on IVF unless needed. CKD stage III, Stable - Cr baseline 1.1, 1.25 on admission - Monitor Patient is admitted under inpatient status expected length of stay greater than 2 midnights due to severity of presenting symptoms, risk of adverse events, and complexity of treatment plan. Plan to discharge patient in 2 days Patient is Full Code Pain Evaluation: Adequate Pain Control GI Prophylaxis: H2 damaris VTE Prophylaxis: Other (on heparin drip) Resuscitation Status: CPR: Attempt Resuscitation GI Prophylaxis: Proton Pump Inhibitor VTE Prophylaxis: Sub-Q Heparin (Unfractionated) VTE Mechanical Devices: Venous Foot Pump Resuscitation Status: CPR: Attempt Resuscitation Time spent 30 minutes Bettie Pearl DO Feb 01, 2017 07:38
[2017-02-02] MEDS: Heparin 5,000 Unit/mL Inj SUBQ SCH ×3 (00:09→18:15)
[2017-02-02 05:00] VITALS: BP 145/73; PULSE 79; RESP 18; O2SAT 96
--- NOTE | 2017-02-02 06:41 | NUR ---
Pain Pt c/o 8/ leg pain and given routine Tylenol, which was helpful per pt. No further complaints this shift. VSS. Care continues.
[2017-02-02] MEDS: Acetaminophen 32.5 mg/mL 20 mL Liquid PO PRN (08:54)
[2017-02-02] MEDS: Mupirocin 2% 22 Gm Ointment NASAL SCH ×2 (08:55→21:18)
[2017-02-02] MEDS: TerBINafine 1% 15 Gm Cream TOPICAL SCH ×2 (08:55→21:18)
[2017-02-02] MEDS: Ceftaroline Inj 400 MG in Dextrose 5% 250 ML IV SCH (09:48)
[2017-02-02 12:18] VITALS: BP 183/81; PULSE 79; RESP 20; O2SAT 94
--- NOTE | 2017-02-02 15:22 | NUR ---
Inpatient Wound Nurse Patient's wraps were removed and Dr. Pearl assessed BLE. Patient, MD, and CWON agree that BLE have improved significantly. Patient understands that he may need Unna wraps in the future and his MD at [facility] will manage. Previously applied wrap was completely removed and both LE cleansed with soap and water washcloth, then rinsed. Bright erythemic areas have improved but still evident in patchy pattern. Layers of crusting and flaking are greatly improved. No areas of weeping or moisture are observed. CWON RN wrapped LLE with Unna, Kerlix, and Coban without challenge. Patient is concerned about ongoing pain in LLE ankle. He stated that he has appointment later this month at [facility]. He and understand that these wraps may remain in place up to five days and he will follow up at [facility].
[2017-02-02 16:32] VITALS: BP 155/74; PULSE 82; RESP 19; O2SAT 95
--- NOTE | 2017-02-02 18:30 | NUR ---
Activity: Patient has been up independent in his room. Tylenol controls general pain adequately. Patient stated that his back is itching lamosil cream applied to the area with relief of the itching.
--- NOTE | 2017-02-02 20:57 | PCM.PNMED ---
Subjective Date of Service Feb 02, 2017 Subjective Patient is visited by me twice today, once during group rounding, when the wound care was changing dressings then again to give him an update on his MRI of the ankle. He appears to be in good mood, looking forward to going home tomorrow. Wound care was changing Unna boots at one of my visits, his left lower extremity and it looks better, improved erythema and swelling. Patient denies overnight fevers and chills Exam Vital Signs Vital Sign - Last Date Time Temp Pulse Resp B/P Pulse Ox O2 Delivery O2 Flow Rate FiO2 02/02/17 16:32 36.7 82 19 155/74 95 Room Air Intake and Output 02/01/17 02/01/17 02/02/17 Cumulative From/Thru 15:00 23:00 07:00 01/29/17 14:30 - 02/02/17 05:10 Intake Total 300 ml 1250 ml 6065 ml Output Total 1350 ml Balance 300 ml 1250 ml 4715 ml Intake Oral 1250 ml 3198 ml IV Total 300 ml 2867 ml Output Urine Total 1350 ml # Voids 4 10 # Bowel Movements 0 1 Exam Gen.: No acute distress, lying down watching TV HEENT: Missing front teeth Heart: Regular rate and rhythm no S3-S4 murmurs Lungs clear to auscultation no increased work of breathing Abdomen soft nontender normal bowel sounds Extremities: Both legs are unwrapped today able to view skin changes, much improved erythema and swelling, dermatitis pattern appears to be more similar to the right lower leg Neurological alert and oriented by 3, mood is neutral Lab and Diagnostics Result Diagram: 02/02/17 0825 02/02/17 0825 X-Rays, CTs and MRIs PROCEDURE: US VEINOUS LEG DUPLEX UNILATERAL, LEFT IMPRESSION: No evidence of deep vein thrombosis involving the left lower extremity. Dictated by: Shannan Carlson MD, PhD on 01/29/2017 at 16:33 -- PROCEDURE: MRI ANKLE LEFT WITH AND WITHOUT CONTRAST ([id number]) INDICATIONS: concern for osteomyelitis IMPRESSION: No definite marrow signal change or enhancement to suggest osteomyelitis. Circumferential subcutaneous edema/cellulitis. Small subcutaneous fluid collection possible rim enhancement overlying the lateral malleolus raising the possibility of phlegmon/developing abscess. Minimal peroneal tenosynovitis of unknown clinical significance. Dictated by: Milton Osuna M.D. on 01/31/2017 at 14:42 Approved by: Milton Osuna M.D. on 01/31/2017 at 15:06 12-lead ECG Sinus rhythm; RBBB Assessment & Plan Patient is a 76 y/o male with past medical history of DMT2, [place] with stent, ischemic CVA with left residual, COPD, and eczema presents with lower extremity redness and swelling that began one month ago in his LLE and had spread to his RLE in the last week - Acute Lower Extremity Erythema and Swelling, Present on Admission, Active, Stable (Infectious vs. Diminished Arterial Supply) - Patient has history of eczema with pruritic rash on bilateral LE that is actively weeping. DVT studies negative. Cellulitis appearance and active chills suggestive of infectious, possibly osteomyelitis. Distal Pallor and cool temperature suggestive of arterial insufficiency - U/S artery study of LLE in AM was neg - Order, ESR 6->15, CRP 2.7-->4.1, and Blood Cultures x2 no growth to date - Plain XR of LLE ankle: "Minimal bony irregularity can be seen involving the inferior medial malleolus. In this patient with a given history, this may be related to osteomyelitis at this site. Please correlate with physical examination findings.", Ordered MRI of LLE ankle - Discontinued Vancomycin and Zosyn 01/30, the patient has a cellulitic rash on the left lower extremity appears to be more indicative of dermatitis - Benadryl 50mg HS for pruritus -- ceftriaxone 2 g daily was initially given on 01/30 -- MRSA nasal swab: Presumptive positive -- Wound care consult: There are no wrapping patient's lower extremities -- Elevate legs -- 01/31 changed antibiotics to ceftaroline 600 mg IV twice a day -- Consider linezolid by mouth and flagyl -- MRI of left ankle showed:"Small subcutaneous fluid collection possible rim enhancement overlying the lateral malleolus raising the possibility of phlegmon/ developing abscess.Minimal peroneal tenosynovitis of unknown clinical significance." -- Consult ID:"1. I would continue ceftaroline for about two more days and I have put a stop date in the computer. Unless there is additional evidence of infection, I would stop all his antibiotics, February 02 or February 03 and consider him for discharge. I would continue with the nasal mupirocin." -- Patient's IV antibiotics will be done today, wound care plans to leave the Unna boots for 5 more days at which time he [facility] Fungal infection diffuse, active, POA ---- Terbinafine Cream for possible fungal infection Left ankle abscess, active -- As evidenced by MRI -- Consider by mouth Flagyl by mouth -- -- Consult ID: Recommendations as above -- Discussed findings of the MRI with the patient on 02/02 evening Elevated creatinine resolved 01/31 -- Likely secondary to antibiotics Vanco and Zosyn -- Switched antibiotics Chronic Hypertension, Present on Admission, Active - Patient takes Amlodipine 2.5mg PO HS, increase to 5 mg as his blood pressure is poorly controlled Chronic GERD with PUD, Stable - Continue Omeprazole home dose History of COPD, Stable - Continue home dose of Albuterol HFA History of DMT2, diet controlled, Stable - Place pt on insulin ssi -- Patient states that he was on insulin at one time, was taken off of it -- A1c was ordered as a.m. blood sugars were high Chronic Systolic CHF with reduced EF (40-45%), Stable - Patient not in any sort of CHF exacerbation - Tolerating PO intake, will hold off on IVF unless needed. CKD stage III, Stable - Cr baseline 1.1, 1.25 on admission - Monitor Patient is admitted under inpatient status expected length of stay greater than 2 midnights due to severity of presenting symptoms, risk of adverse events, and complexity of treatment plan. Plan to discharge patient in 2 days Patient is Full Code Pain Evaluation: Adequate Pain Control GI Prophylaxis: H2 damaris VTE Prophylaxis: Other (on heparin drip) Resuscitation Status: CPR: Attempt Resuscitation GI Prophylaxis: Proton Pump Inhibitor VTE Prophylaxis: Sub-Q Heparin (Unfractionated) VTE Mechanical Devices: Venous Foot Pump Resuscitation Status: CPR: Attempt Resuscitation Time spent 25 minutes Bettie Pearl DO Feb 02, 2017 20:57
[2017-02-02] MEDS: Acetaminophen 32.5 mg/mL 20 mL Liquid PO SCH (21:15)
[2017-02-02 21:24] VITALS: BP 164/83; PULSE 78; RESP 18; O2SAT 96
[2017-02-03] MEDS: Heparin 5,000 Unit/mL Inj SUBQ SCH ×2 (01:25→08:30)
[2017-02-03] MEDS: diphenhydrAMINE 25 mg Capsule PO PRN (01:28)
[2017-02-03 06:01] VITALS: BP 150/71; PULSE 85; RESP 18; O2SAT 95
[2017-02-03] MEDS: Acetaminophen 32.5 mg/mL 20 mL Liquid PO PRN (06:18)
[2017-02-03] MEDS: TerBINafine 1% 15 Gm Cream TOPICAL SCH (08:30)
[2017-02-03] MEDS: Mupirocin 2% 22 Gm Ointment NASAL SCH (08:30)
[2017-02-03] MEDS ORDERED: MUPI22OI2 NASAL (10:44)
[2017-02-03] MEDS ORDERED: Terbinafine Hcl TOPICAL (10:44)
[2017-02-03] MEDS ORDERED: AMLO5TAB2 PO (10:44)
--- NOTE | 2017-02-03 10:58 | PCM.DIMED ---
Discharge Instructions Date of Service Feb 03, 2017 Dates of Hospitalization Jan 29, 2017 at 19:28 Discharge Diagnosis Discharge Diagnosis Cellulitis, Diabetes Mellitus, HTN, Fungal infection of skin, Venous Stasis dermatits Diet Discharge Diet: Heart Healthy Activity Discharge Activity: No restrictions Call your provider Call your provider for: Fever or Chills, Shortness of breath, Bleeding, Chest pain, Vomitting, Excessive diarrhea, Weakness (unilateral), Other Patient Instructions Patient Instructions Please keep your lower legs wrapped. Continue the terbinafine for 2 more weeks Follow-up plan [facility] will [facility] the delisa boot wrapping. Please discuss f/u wound care with them. Bettie Pearl DO Feb 03, 2017 10:58
--- NOTE | 2017-02-03 11:00 | PCM.DC.MED ---
Discharge Summary Date of Service Feb 03, 2017 Dates of Hospitalization Date of Hospital Admission Jan 29, 2017 at 19:28 Date of Discharge: Feb 03, 2017 Providers: Admitting Physician: Jenny Everett DO Primary Care Physician[facility] Attending Physician: Bettie Partida DO Diagnosis at Time of Discharge Diagnosis at Time of Discharge Cellulitis, Diabetes Mellitus, HTN, Fungal infection of skin, Venous Stasis dermatits Consultations Wound Care, Infectious Disease Procedures XRay, CTs & MRIs PROCEDURE: US VEINOUS LEG DUPLEX UNILATERAL, LEFT IMPRESSION: No evidence of deep vein thrombosis involving the left lower extremity. Dictated by: Shannan Carlson MD, PhD on 01/29/2017 at 16:33 -- PROCEDURE: MRI ANKLE LEFT WITH AND WITHOUT CONTRAST ([id number]) INDICATIONS: concern for osteomyelitis IMPRESSION: No definite marrow signal change or enhancement to suggest osteomyelitis. Circumferential subcutaneous edema/cellulitis. Small subcutaneous fluid collection possible rim enhancement overlying the lateral malleolus raising the possibility of phlegmon/developing abscess. Minimal peroneal tenosynovitis of unknown clinical significance. Dictated by: Milton Osuna M.D. on 01/31/2017 at 14:42 Approved by: Milton Osuna M.D. on 01/31/2017 at 15:06 ECG 12 Lead Sinus rhythm; RBBB Brief History Patient is a 76 y/o male with past medical history of DMT2, [facility] with stent, ischemic CVA with left residual, COPD, and eczema presents with lower extremity redness and swelling that began one month ago in his LLE and had spread to his RLE in the last week. Patient states that his eczema has been worse the past couple months, and he has had severe itchiness to his lower extremities and constantly scratches his legs. He began noticing the redness and swelling on the anterior aspect of his L ankle. This redness began to spread to the posterior ankle as well as up his leg. Along with the swelling, the patient states that his left leg has been draining fluid through the skin. His right leg has also been having extreme itchiness with redness and swelling starting this week, but denies any drainage. Patient notes point pain on the lateral ankle. Patient experiences claudication symptoms on days where he is more active and at night. Patient ambulates normally with a cane due to his left residual weakness. Associated sxs include, pain with active and passive flexion of his left foot, and a burning sensation along the anterior aspect of his Left ankle. Patient has been having chills the past two days. Denies any fevers, CP, increased SOB from baseline, ABD pain, N/V/D, dysuria, or urinary frequency. In the ED, patient was afebrile with RR, BP 179/77, O2 96% RA. Patient was started on Vancomycin and Zosyn due to the cellulitic appearance and chills. Hospital Course Patient is a 76 y/o male with past medical history of DMT2, [facility] with stent, ischemic CVA with left residual, COPD, and eczema presents with lower extremity redness and swelling that began one month ago in his LLE and had spread to his RLE in the last week - Acute Lower Extremity Erythema and Swelling, Present on Admission, Active, Stable (Infectious vs. Diminished Arterial Supply) - Patient has history of eczema with pruritic rash on bilateral LE that is actively weeping. DVT studies negative. Cellulitis appearance and active chills suggestive of infectious, possibly osteomyelitis. Distal Pallor and cool temperature suggestive of arterial insufficiency - U/S artery study of LLE in AM was neg - Order, ESR 6->15, CRP 2.7-->4.1, and Blood Cultures x2 no growth to date - Plain XR of LLE ankle: "Minimal bony irregularity can be seen involving the inferior medial malleolus. In this patient with a given history, this may be related to osteomyelitis at this site. Please correlate with physical examination findings.", Ordered MRI of LLE ankle - Discontinued Vancomycin and Zosyn 01/30, the patient has a cellulitic rash on the left lower extremity appears to be more indicative of dermatitis - Benadryl 50mg HS for pruritus -- ceftriaxone 2 g daily was initially given on 01/30 -- MRSA nasal swab: Presumptive positive -- Wound care consult: There are no wrapping patient's lower extremities -- Elevate legs -- 01/31 changed antibiotics to ceftaroline 600 mg IV twice a day -- MRI of left ankle showed:"Small subcutaneous fluid collection possible rim enhancement overlying the lateral malleolus raising the possibility of phlegmon/ developing abscess.Minimal peroneal tenosynovitis of unknown clinical significance." -- Consult ID:"1. I would continue ceftaroline for about two more days and I have put a stop date in the computer. Unless there is additional evidence of infection, I would stop all his antibiotics, February 02 or February 03 and consider him for discharge. I would continue with the nasal mupirocin." -- Patient's IV antibiotics will be done today, wound care plans to leave the Unna boots for 5 more days at which time he can [facility] Fungal infection diffuse, active, POA ---- Terbinafine Cream for possible fungal infection Left ankle abscess, active -- As evidenced by MRI -- Consult ID: Recommendations as above -- Discussed findings of the MRI with the patient on 02/02 evening Elevated creatinine resolved 01/31 -- Likely secondary to antibiotics Vanco and Zosyn -- Switched antibiotics Chronic Hypertension, Present on Admission, Active - Patient takes Amlodipine 2.5mg PO HS, increased to 5 mg as his blood pressure is poorly controlled Chronic GERD with PUD, Stable - Continue Omeprazole home dose History of COPD, Stable - Continue home dose of Albuterol HFA History of DMT2, diet controlled, Stable - Place pt on insulin ssi -- Patient states that he was on insulin at one time, was taken off of it -- A1c was ordered 5.5 Chronic Systolic CHF with reduced EF (40-45%), Stable - Patient not in any sort of CHF exacerbation during this admission CKD stage III, Stable - Cr baseline 1.1, 1.25 on admission - Monitor Patient is admitted under inpatient status expected length of stay greater than 2 midnights due to severity of presenting symptoms, risk of adverse events, and complexity of treatment plan. Plan to discharge patient in 2 days Exam Vital Signs (Last) Date Time Temp Pulse Resp B/P Pulse Ox O2 Delivery O2 Flow Rate FiO2 02/03/17 06:01 36.8 85 18 150/71 95 Room Air Exam General: NAD HEENT: NCAT Heart: RRR, no s3/s4 Lungs: CTA, no crackles or wheezes Abd: NT/ND, soft Ext: Both lower ext wrapped in delisa boots Neuro: No focal deficits Psych: No anxiety Test 01/29/17 16:59 01/30/17 05:40 01/30/17 14:53 01/31/17 05:55 Prothrombin Time 10.2sec (8.1-12.5) Prothromb Time International Ratio 0.95ratio Lactic Acid Level 1.1mmol/L (0.4-2.0) Magnesium Level 1.6mg/dL (1.6-2.6) Troponin T < 0.010ug/L (0.0-0.011) Lipase 38U/L (13-60) Red Blood Count 4.46mil/mm3 (4.40-5.80) Hemoglobin 9.1g/dL (13.8-17.2) Hematocrit 32.7% (41.0-50.0) Mean Corpuscular Volume 73.3fL (81-100) Mean Corpuscular Hemoglobin 20.4pg (27.0-35.0) Mean Corpuscular Hemoglobin Concent 27.8% (32.0-37.0) Red Cell Distribution Width 17.5% (12.3-15.4) Platelet Count 219bil/L (150-400) Neutrophils (%) (Auto) 64.7% (40-74) Lymphocytes (%) (Auto) 16.6% (14-46) Monocytes (%) (Auto) 9.6% (4-12) Eosinophils (%) (Auto) 8.3% (0-5) Basophils (%) (Auto) 0.4% (0-3) Total Bilirubin 0.2mg/dL (0.0-1.2) Aspartate Amino Transf (AST/SGOT) 9U/L (0-50) Alanine Aminotransferase (ALT/SGPT) 5U/L (0-44) Alkaline Phosphatase 72U/L (25-160) Total Protein 5.3g/dL (6.4-8.4) Albumin 3.3g/dL (3.4-5.0) Urine Color Yellow (YELLOW) Urine Appearance Clear (CLEAR,HAZY) Urine pH 6.0 (5.0-8.0) Urine Specific [place] 1.025 (1.003-1.035) Urine Protein Tracemg/dL (NEG,TRACE) Urine Glucose (UA) Negativemg/dL (NEGATIVE) Urine Ketones Negativemg/dL (NEGATIVE) Urine Occult Blood Negative (NEGATIVE) Urine Nitrite Negative (NEGATIVE) Urine Bilirubin Negative (NEGATIVE) Urine Urobilinogen Normalmg/dL (NORMAL) Urine Leukocyte Esterase Negative (NEGATIVE) Urine RBC 0-2/hpf (0-2) Urine WBC 0-5/hpf (0-5) Urine Epithelial Cells Occasional/hpf (NONE-MOD) Urine Crystals None seen (NONE SEEN) Urine Bacteria None/hpf (NONE-FEW) Urine Hyaline Casts Occasional/lpf (NONE) Urine Granular Casts None seen (NONE SEEN) Urine Waxy Casts None seen (NONE SEEN) Urine Red Blood Cell Casts None seen (NONE SEEN) Urine White Blood Cell Casts None seen (NONE SEEN) Urine Mucus Present (None Seen) Urine Trichomonas None seen (NONE SEEN) Urine Yeast None (NONE SEEN) Urinalysis Comment None Urine Culture Reflexed Not indicated Procalcitonin 0.09ng/mL (0.00-0.08) Streptozyme < 20.0IU/mL (0.0-200.0) Test 02/02/17 08:25 White Blood Count 6.1th/mm3 (3.8-10.1) Erythrocyte Sedimentation Rate 9mm/hr (0-30) Sodium Level 140mEq/L (134-144) Potassium Level 4.2mEq/L (3.5-5.2) Chloride Level 102mEq/L (97-108) Carbon Dioxide Level 25mmol/L (18-29) Blood Urea Nitrogen 14mg/dL (8-27) Creatinine 1.10mg/dL (0.76-1.27) Estimat Glomerular Filtration Rate 69mL/min (>59) Glucose Level 162mg/dL (60-99) Hemoglobin A1c 5.6% (4.8-5.6) Calcium Level 8.6mg/dL (8.5-10.1) C-Reactive Protein 1.2mg/dL (0.0-0.5) Discharge Medications Discharge Medications ([Terbinafine Hcl]) 1 APPLIC/0.5 GM CREAM 1 APPLIC TOPICAL BID Prescribed by: BETTIE PARTIDA DO Acetaminophen (Acetaminophen) 500 Mg Tablet 1,500 MG PO HS (Reported) Amlodipine (Amlodipine) 5 Mg Tablet 5 MG PO HS Prescribed by: BETTIE PARTIDA DO Aspirin (Aspirin) 81 Mg Tablet 81 MG PO HS (Reported) Melatonin (Melatonin) 5 Mg Tablet 5 MG PO HS (Reported) Mupirocin (Mupirocin Ointment) 22 Gm Oint...g. 1 APPLIC NASAL BID Prescribed by: BETTIE PARTIDA DO Omeprazole (Omeprazole) 20 Mg Capsule.dr 20 MG PO HS (Reported) diphenhydrAMINE HCl (Benadryl) 25 Mg Capsule 25 MG PO HS (Reported) As needed ([[place]]) 1 APPLIC TOPICAL DIRECTED PRN PRN RASH (Reported) Albuterol HFA (Proair HFA) 8.5 Gm Hfa.aer.ad 2 PUFFS INHALATION Q4H PRN PRN For Shortness of Breath (Reported) Docusate Sodium (Docusate Sodium) 250 Mg Capsule 250 MG PO BID PRN PRN For Constipation (Reported) Polyethylene Glycol 3350 (Miralax) 17 Gm Powd.pack 17 GM PO DAILY PRN PRN For Constipation (Reported) Sennosides (Senna) 8.6 Mg Tablet 17.2 MG PO BID PRN PRN For Constipation ( Reported) Followup Plan Follow[facility]up plan [facility] delisa boot wrapping. Please discuss f/u wound care with them. Discharge Diet: Heart Healthy Discharge Activity: No restrictions Patient Instructions Please keep your lower legs wrapped. Continue the terbinafine for 2 more weeks Time spent > 30 min were spent planning and and performing this discharge out of which > 50 % is spent in patient counselling, and coordination of care Bettie Partida DO Feb 03, 2017 11:00
--- NOTE | 2017-02-03 12:22 | NUR ---
Discharge Nursing note: Patient was discharged to home at 1215. His IV was removed intact. All of his discharge information was reviewed with him and his questions were answered to his satisfaction. Patient was brought to the hospital lobby in a wheelchair by nursing staff member and he was driven to home by his .
--- NOTE | 2017-02-03 14:57 | NUR ---
Social Work: Discharge / Multidisciplinary Rounds Data & Assessment: EMR reviewed. Patient is on day 5 of hospitalization for cellulitis per H&P. Patient was discussed in morning rounds. No concerns were noted by staff or MD. Patient has been deemed medically stable for discharge today. Patient will discharge home with his spouse. Transportation will be provided by spouse via POV. Patient has no additional needs. Plan: Patient will discharge home today. Transportation will be provided by his spouse. Patient has no additional needs at this time. ANNY Banks
== END 2017-02-03 12:10 | disposition home or self-care (01) | DRG 603 ==
LOC: SED 14:15 → MPC 19:28
PROVIDERS: ADMIT Internal Medicine; ATTEND Family Medicine
DX: L03.116 Cellulitis of left lower limb (principal); I50.22 Chronic systolic (congestive) heart failure; B48.8 Other specified mycoses; I69.354 Hemiplegia and hemiparesis following cerebral infarction affecting left non-dominant side; E11.9 Type 2 diabetes mellitus without complications; J44.9 Chronic obstructive pulmonary disease, unspecified; K21.9 Gastro-esophageal reflux disease without esophagitis; E78.5 Hyperlipidemia, unspecified; I12.9 Hypertensive chronic kidney disease with stage 1 through stage 4 chronic kidney disease, or unspecified chronic kidney disease; N18.3 Chronic kidney disease, stage 3 (moderate); K27.7 Chronic peptic ulcer, site unspecified, without hemorrhage or perforation; L02.416 Cutaneous abscess of left lower limb; R13.10 Dysphagia, unspecified; I25.10 Atherosclerotic heart disease of native coronary artery without angina pectoris; I69.391 Dysphagia following cerebral infarction; I25.2 Old myocardial infarction; Z79.82 Long term (current) use of aspirin; Z87.891 Personal history of nicotine dependence; Z95.5 Presence of coronary angioplasty implant and graft; Z85.46 Personal history of malignant neoplasm of prostate